=== PATIENT | female | born 1965 | race African-American/Black ===

== ENCOUNTER 2016-12-22 10:36 | Emergency (ER) | payer OTHER ==
[2016-12-22 11:58] LABS: BILIRUBIN NEGATIVE (NEGATIVE); BLOOD 1+ Ery/uL (NEGATIVE); CLARITY CLEAR (CLEAR); COLOR YELLOW (YELLOW); GLUCOSE (U) NORMAL (NORMAL); KETONE (U) NEGATIVE (NEGATIVE); LEUKOCYTES NEGATIVE Leu/uL (NEGATIVE); NITRITE NEGATIVE (NEGATIVE); PROTEIN NEGATIVE (NEGATIVE); SPECIFIC GRAVITY 1.025 (1.001-1.030); UROBILINOGEN 0.2 mg/dL (0.2-1.0); pH 5.5 (5.0-9.0)
[2016-12-22 12:05] LABS: BACTERIA TRACE
== END 2016-12-22 12:44 | disposition home or self-care (01) ==
LOC: FER 10:36
PROVIDERS: Nurse Practitioner Family
DX: S39.012A Strain of muscle, fascia and tendon of lower back, initial encounter (principal); G89.29 Other chronic pain; Z79.82 Long term (current) use of aspirin; Z79.891 Long term (current) use of opiate analgesic
CPT/HCPCS: 81001; J1100; J2270

== ENCOUNTER 2021-07-25 12:41 | Emergency (ER) | payer OTHER ==
[~2021-07-25 12:41] MED LIST: AMIODARONE HCL200 MG PO; CEFDINIR300 MG PO; DOXYCYCLINE MO100 MG PO; ELIQUIS5 MG PO; HYDROCODONE-CH473 ML PO; HYZAAR 50-12.51 EACH PO; IBUPROFEN800 MG PO; IMDUR 30MG TABL30 MG PB; METOPROLOL PO; NEURONTIN100 MG PO; NITROQUIK SL0.4 MG SL; PERCOCET 7.5/321 TAB PO; VICODIN 10/3251 EACH PO; ZANAFLEX4 M1 PO
[2021-07-25 14:43] LABS: BASOPHIL 0.4 % (0-2); EOSINOPHIL 0.8 % (0-5); HCT 38.6 % (37.0-47.0); LYMPHOCYTE 35.2 % (15-48); MCH 32.2 pg (25.0-31.0); MCHC 33.7 g/dL (32.0-36.0); MCV 95.5 fL (78.0-100.0); MONOCYTE 6.7 % (0-12); MPV 11.8 fL (6.0-9.5); NEUTROPHIL 56.7 % (41-80); NRBC 0; PLT 234 K/uL (150-400); RBC 4.04 M/uL (4.20-5.40); WBC 9.7 K/uL (4.0-10.5)
[2021-07-25 15:46] LABS: CORONAVIRUS 2019 SARS-COV-2 NEGATIVE (NEGATIVE); INFLUENZA A NAA NEGATIVE (NEGATIVE)
[2021-07-25 16:15] LABS: CREATININE 1.02 mg/dL (0.51-0.95); POTASSIUM 3.8 mmol/L (3.5-5.1)
[2021-07-25 16:16] LABS: MAGNESIUM 2.1 mg/dL (1.8-2.4)
[2021-07-25 17:02] LABS: VITAMIN D (25-OH) 11.3 ng/mL (30.0-100.0)
== END 2021-07-25 17:25 | disposition home or self-care (01) ==
LOC: FER 12:41
PROVIDERS: Internal Medicine
DX: R20.2 Paresthesia of skin (principal); I48.91 Unspecified atrial fibrillation; F17.210 Nicotine dependence, cigarettes, uncomplicated; Z20.822 Contact with and (suspected) exposure to COVID-19
CPT/HCPCS: 36415; 70450; 71045; 80048; 82306; 82607; 83735; 84443; 84484; 85025; 93005; U0002

== ENCOUNTER 2021-08-05 18:12 | Emergency (ER) | payer OTHER ==
[~2021-08-05 18:12] MED LIST changes: +TESSALON PERLE100 MG PO; +VENTOLIN HFA IN18 GM INH
[2021-08-05 19:08] LABS: INFLUENZA A NAA NEGATIVE (NEGATIVE)
[2021-08-05 19:11] LABS: CORONAVIRUS 2019 SARS-COV-2 POSITIVE (NEGATIVE)
[2021-08-05 22:09] LABS: BASOPHIL 0.4 % (0-2); EOSINOPHIL 0.7 % (0-5); HCT 36.4 % (37.0-47.0); LYMPHOCYTE 11.5 % (15-48); MCH 32.2 pg (25.0-31.0); MCV 97.6 fL (78.0-100.0); MONOCYTE 7.8 % (0-12); MPV 11.4 fL (6.0-9.5); NEUTROPHIL 79.2 % (41-80); NRBC 0; PLT 168 K/uL (150-400); RBC 3.73 M/uL (4.20-5.40); RDW 12.2 % (11.5-14.0); WBC 5.6 K/uL (4.0-10.5)
[2021-08-05 22:26] LABS: ALBUMIN 3.8 g/dL (3.4-5.0); BILIRUBIN - TOTAL 0.3 mg/dL (0.2-1.0); CREATININE 1.11 mg/dL (0.51-0.95); GLOBULIN (CALCULATION) 3.5 g/dL; POTASSIUM 3.9 mmol/L (3.5-5.1); TOTAL PROTEIN 7.3 g/dL (6.4-8.2)
[2021-08-05 23:38] LABS: BILIRUBIN NEGATIVE (NEGATIVE); BLOOD TRACE-INTACT Ery/uL (NEGATIVE); CLARITY CLEAR (CLEAR); COLOR YELLOW (YELLOW); GLUCOSE (U) NORMAL (NORMAL); LEUKOCYTES NEGATIVE Leu/uL (NEGATIVE); NITRITE NEGATIVE (NEGATIVE); PROTEIN NEGATIVE (NEGATIVE); UROBILINOGEN 0.2 mg/dL (0.2-1.0)
[2021-08-05 23:44] LABS: BACTERIA TRACE; SQUAMOUS EPITHELIAL CELLS RARE
== END 2021-08-06 00:15 | disposition home or self-care (01) ==
LOC: FER 18:12
PROVIDERS: Emergency Medicine; Physician Assistant
DX: U07.1 COVID-19 (principal); F17.210 Nicotine dependence, cigarettes, uncomplicated
CPT/HCPCS: 36415; 71045; 80053; 81001; 83880; 84484; 85025; 93005; U0002

== ENCOUNTER 2021-12-20 09:53 | Emergency (ER) | payer OTHER ==
[2021-12-20 11:34] LABS: BASOPHIL 0.7 % (0-2); EOSINOPHIL 0.4 % (0-5); HCT 35.9 % (37.0-47.0); HGB 11.5 g/dl (12.5-16.0); LYMPHOCYTE 34.3 % (15-48); MCH 31.3 pg (25.0-31.0); MCV 97.8 fL (78.0-100.0); MONOCYTE 5.4 % (0-12); MPV 11.2 fL (6.0-9.5); NEUTROPHIL 59.1 % (41-80); NRBC 0; PLT 193 K/uL (150-400); RBC 3.67 M/uL (4.20-5.40); RDW 12.4 % (11.5-14.0); WBC 7.5 K/uL (4.0-10.5)
[2021-12-20 12:02] LABS: ALBUMIN 3.4 g/dL (3.4-5.0); BILIRUBIN - TOTAL 0.7 mg/dL (0.2-1.0); BUN/CREAT RATIO (CALC) 19.8 RATIO; CREATININE 1.11 mg/dL (0.51-0.95); GLOBULIN (CALCULATION) 3.4 g/dL; POTASSIUM 4.2 mmol/L (3.5-5.1); TOTAL PROTEIN 6.8 g/dL (6.4-8.2)
[2021-12-20] MEDS ORDERED: AMOX TR-K CLV1 EAC4 PO (15:51)
[2021-12-20] MEDS ORDERED: LASIX20 MG PO (15:51)
== END 2021-12-20 16:36 | disposition home or self-care (01) ==
LOC: FER 09:53
PROVIDERS: Emergency Medicine
DX: I11.0 Hypertensive heart disease with heart failure (principal); I50.9 Heart failure, unspecified; J32.9 Chronic sinusitis, unspecified; F17.210 Nicotine dependence, cigarettes, uncomplicated; Z20.822 Contact with and (suspected) exposure to COVID-19
CPT/HCPCS: 36415; 71046; 80053; 82728; 83615; 83880; 84145; 84484; 85025; 86140; J1940; U0002

== ENCOUNTER 2022-01-04 22:40 | Emergency (ER) | payer OTHER ==
[~2022-01-04 22:40] MED LIST changes: +AMOX TR-K CLV1 EAC4 PO; +LASIX20 MG PO
[2022-01-04 23:19] LABS: BASOPHIL 0.6 % (0-2); EOSINOPHIL 0.9 % (0-5); HCT 37.5 % (37.0-47.0); HGB 12.3 g/dl (12.5-16.0); LYMPHOCYTE 36.5 % (15-48); MCH 31.7 pg (25.0-31.0); MCHC 32.8 g/dL (32.0-36.0); MCV 96.6 fL (78.0-100.0); MONOCYTE 3.9 % (0-12); MPV 11.6 fL (6.0-9.5); NEUTROPHIL 57.7 % (41-80); NRBC 0; PLT 208 K/uL (150-400); RBC 3.88 M/uL (4.20-5.40); RDW 12.4 % (11.5-14.0); WBC 10.4 K/uL (4.0-10.5)
[2022-01-04 23:30] LABS: INR 1.28 (0.9-1.2); PROTHROMBIN TIME 15.3 SECONDS (11.8-13.4); PTT 32.3 SECONDS (24.4-34.7)
[2022-01-04 23:41] LABS: ALBUMIN 3.9 g/dL (3.4-5.0); BILIRUBIN - TOTAL 0.3 mg/dL (0.2-1.0); BUN/CREAT RATIO (CALC) 19.6 RATIO; CREATININE 1.38 mg/dL (0.51-0.95); GLOBULIN (CALCULATION) 3.3 g/dL; POTASSIUM 3.9 mmol/L (3.5-5.1); TOTAL PROTEIN 7.2 g/dL (6.4-8.2)
[2022-01-05 00:03] LABS: CORONAVIRUS 2019 SARS-COV-2 NEGATIVE (NEGATIVE); INFLUENZA A NAA NEGATIVE (NEGATIVE)
[2022-01-05] MEDS ORDERED: LASIX20 MG PO (02:37)
== END 2022-01-05 02:52 | disposition home or self-care (01) ==
LOC: FER 22:40
PROVIDERS: Internal Medicine
DX: I13.0 Hypertensive heart and chronic kidney disease with heart failure and stage 1 through stage 4 chronic kidney disease, or unspecified chronic kidney disease (principal); I50.9 Heart failure, unspecified; N18.30 Chronic kidney disease, stage 3 unspecified; F17.210 Nicotine dependence, cigarettes, uncomplicated; Z20.822 Contact with and (suspected) exposure to COVID-19
CPT/HCPCS: 36415; 71045; 71250; 80053; 83690; 83880; 84145; 84484; 85025; 85610; 85730; 93005; J1170; J2405; U0002

== ENCOUNTER 2022-01-19 02:07 | Emergency (ER) | payer OTHER ==
[2022-01-19 03:55] LABS: BASOPHIL 0.6 % (0-2); HCT 37.9 % (37.0-47.0); HGB 12.5 g/dl (12.5-16.0); LYMPHOCYTE 43.9 % (15-48); MCH 31.6 pg (25.0-31.0); MCV 95.7 fL (78.0-100.0); MONOCYTE 5.7 % (0-12); MPV 11.5 fL (6.0-9.5); NEUTROPHIL 48.5 % (41-80); NRBC 0; PLT 224 K/uL (150-400); RBC 3.96 M/uL (4.20-5.40); RDW 12.4 % (11.5-14.0); WBC 10.1 K/uL (4.0-10.5)
[2022-01-19 04:08] LABS: ALBUMIN 3.8 g/dL (3.4-5.0); BILIRUBIN - TOTAL 0.4 mg/dL (0.2-1.0); BUN/CREAT RATIO (CALC) 24.3 RATIO; CREATININE 1.4 mg/dL (0.51-0.95); GLOBULIN (CALCULATION) 3.4 g/dL; POTASSIUM 3.7 mmol/L (3.5-5.1); TOTAL PROTEIN 7.2 g/dL (6.4-8.2)
== END 2022-01-19 06:20 | disposition home or self-care (01) ==
LOC: FER 02:07
PROVIDERS: Emergency Medicine
DX: I11.0 Hypertensive heart disease with heart failure (principal); I50.9 Heart failure, unspecified; I48.91 Unspecified atrial fibrillation; F17.200 Nicotine dependence, unspecified, uncomplicated; Z20.822 Contact with and (suspected) exposure to COVID-19; Z79.01 Long term (current) use of anticoagulants; Z79.899 Other long term (current) drug therapy
CPT/HCPCS: 36415; 71045; 80053; 84484; 85025; 93005; 93971; J1940; U0002

== ENCOUNTER 2022-01-25 19:01 | Emergency (ER) | payer OTHER ==
[2022-01-25 19:38] LABS: BASOPHIL 0.8 % (0-2); EOSINOPHIL 0.8 % (0-5); HCT 40.6 % (37.0-47.0); HGB 13.5 g/dl (12.5-16.0); LYMPHOCYTE 40.3 % (15-48); MCH 32.2 pg (25.0-31.0); MCHC 33.3 g/dL (32.0-36.0); MCV 96.9 fL (78.0-100.0); MONOCYTE 5.2 % (0-12); MPV 11.2 fL (6.0-9.5); NEUTROPHIL 52.7 % (41-80); NRBC 0; PLT 231 K/uL (150-400); RBC 4.19 M/uL (4.20-5.40); RDW 12.5 % (11.5-14.0); WBC 6.3 K/uL (4.0-10.5)
[2022-01-25 19:54] LABS: ALBUMIN 4.2 g/dL (3.4-5.0); BILIRUBIN - TOTAL 0.6 mg/dL (0.2-1.0); CREATININE 1.65 mg/dL (0.51-0.95); GLOBULIN (CALCULATION) 3.8 g/dL; POTASSIUM 3.9 mmol/L (3.5-5.1)
[2022-01-25 20:19] LABS: CORONAVIRUS 2019 SARS-COV-2 NEGATIVE (NEGATIVE); INFLUENZA A NAA NEGATIVE (NEGATIVE)
[2022-01-25] MEDS ORDERED: LASIX40 MG PO (21:59)
[2022-01-25] MEDS ORDERED: NORCO 5-325 TA1 EACH PO (21:59)
== END 2022-01-25 22:15 | disposition home or self-care (01) ==
LOC: FER 19:01
PROVIDERS: Internal Medicine
DX: I50.9 Heart failure, unspecified (principal); F17.210 Nicotine dependence, cigarettes, uncomplicated; Z20.822 Contact with and (suspected) exposure to COVID-19
CPT/HCPCS: 36415; 71045; 80053; 83880; 84145; 84484; 85025; 93005; U0002

== ENCOUNTER 2022-02-19 03:14 | Emergency (ER) | payer OTHER ==
[~2022-02-19 03:14] MED LIST changes: +LASIX40 MG PO; +NORCO 5-325 TA1 EACH PO
[2022-02-19 03:44] LABS: BASOPHIL 0.3 % (0-2); EOSINOPHIL 0.8 % (0-5); HCT 35.1 % (37.0-47.0); HGB 11.9 g/dl (12.5-16.0); LYMPHOCYTE 40.4 % (15-48); MCH 32.3 pg (25.0-31.0); MCHC 33.9 g/dL (32.0-36.0); MCV 95.4 fL (78.0-100.0); MONOCYTE 4.3 % (0-12); MPV 11.2 fL (6.0-9.5); NEUTROPHIL 53.9 % (41-80); NRBC 0; PLT 188 K/uL (150-400); RBC 3.68 M/uL (4.20-5.40); RDW 12.2 % (11.5-14.0); WBC 9.9 K/uL (4.0-10.5)
[2022-02-19 04:00] LABS: INR 1.29 (0.9-1.2); PROTHROMBIN TIME 15.7 SECONDS (11.9-13.9); PTT 32.6 SECONDS (24.9-34.6)
[2022-02-19 04:05] LABS: ALBUMIN 3.5 g/dL (3.4-5.0); BILIRUBIN - TOTAL 0.4 mg/dL (0.2-1.0); BUN/CREAT RATIO (CALC) 19.7 RATIO; CREATININE 1.37 mg/dL (0.51-0.95); GLOBULIN (CALCULATION) 3.4 g/dL; MAGNESIUM 1.8 mg/dL (1.8-2.4); POTASSIUM 3.3 mmol/L (3.5-5.1); TOTAL PROTEIN 6.9 g/dL (6.4-8.2)
[2022-02-19 04:39] LABS: CORONAVIRUS 2019 SARS-COV-2 NEGATIVE (NEGATIVE); INFLUENZA A NAA NEGATIVE (NEGATIVE)
[2022-02-19] MEDS ORDERED: OMEPRAZOLE40 MG PO (06:19)
[2022-02-19] MEDS ORDERED: NORCO 5-325 TA1 EACH PO (06:19)
== END 2022-02-19 06:53 | disposition home or self-care (01) ==
LOC: FER 03:14
PROVIDERS: Internal Medicine
DX: R07.89 Other chest pain (principal); I11.0 Hypertensive heart disease with heart failure; I50.9 Heart failure, unspecified; R10.13 Epigastric pain; F17.210 Nicotine dependence, cigarettes, uncomplicated; H54.40 Blindness, one eye, unspecified eye; Z20.822 Contact with and (suspected) exposure to COVID-19; Z95.0 Presence of cardiac pacemaker
CPT/HCPCS: 36415; 71250; 80053; 83690; 83735; 83880; 84145; 84484; 85025; 85610; 85730; 93005; C9113; J1170; J2270; J2405; U0002

== ENCOUNTER 2022-04-03 10:25 | Emergency (ER) | payer OTHER ==
[~2022-04-03 10:25] MED LIST changes: +OMEPRAZOLE40 MG PO
[2022-04-03 12:42] LABS: BASOPHIL 0.5 % (0-2); EOSINOPHIL 0.8 % (0-5); HCT 38.1 % (37.0-47.0); HGB 12.5 g/dl (12.5-16.0); LYMPHOCYTE 25.4 % (15-48); MCH 31.9 pg (25.0-31.0); MCHC 32.8 g/dL (32.0-36.0); MCV 97.2 fL (78.0-100.0); MONOCYTE 4.8 % (0-12); MPV 11.4 fL (6.0-9.5); NEUTROPHIL 68.4 % (41-80); NRBC 0; PLT 180 K/uL (150-400); RBC 3.92 M/uL (4.20-5.40); RDW 13.2 % (11.5-14.0); WBC 7.4 K/uL (4.0-10.5)
[2022-04-03 14:38] LABS: BUN/CREAT RATIO (CALC) 18.1 RATIO; CREATININE 1.05 mg/dL (0.51-0.95); POTASSIUM 4.3 mmol/L (3.5-5.1)
[2022-04-03 14:44] LABS: INFLUENZA A NAA NEGATIVE (NEGATIVE)
[2022-04-03 15:10] LABS: CORONAVIRUS 2019 SARS-COV-2 POSITIVE (NEGATIVE)
[2022-04-03] MEDS ORDERED: VENTOLIN HFA IN18 GM INH (16:02)
[2022-04-03] MEDS ORDERED: PREDNISONE 20MG20 MG PO (16:02)
[2022-04-03] MEDS ORDERED: TESSALON PERLE100 MG PO (16:02)
== END 2022-04-03 16:19 | disposition home or self-care (01) ==
LOC: FER 10:25
PROVIDERS: Nurse Practitioner Family
DX: U07.1 COVID-19 (principal); I11.0 Hypertensive heart disease with heart failure; I50.9 Heart failure, unspecified; F17.210 Nicotine dependence, cigarettes, uncomplicated
CPT/HCPCS: 36415; 71046; 80048; 85025; J1100; J1200; J2405; J7040; U0002